=== PATIENT | female | born 1980 | race Caucasian/White ===

== ENCOUNTER 2023-03-16 11:53 | Outpatient (CLI) | payer BC | END 2023-03-16 11:54 | disposition home or self-care (01) | LOC: CSHMAMMO 11:53 | PROVIDERS: ATTEND Student in an Organized Health Care Education/Training Program | DX: Z12.31 Encounter for screening mammogram for malignant neoplasm of breast (principal) | CPT/HCPCS: 77063; 77067 ==

== ENCOUNTER 2025-11-12 08:19 | Outpatient (CLI) | payer BC | END 2025-11-12 08:20 | disposition home or self-care (01) | LOC: CSHSLEEP 08:19 | DX: G47.19 Other hypersomnia (principal); G47.33 Obstructive sleep apnea (adult) (pediatric); G47.61 Periodic limb movement disorder | CPT/HCPCS: 95810 ==

== ENCOUNTER 2025-11-13 08:22 | Outpatient (CLI) | payer BC | END 2025-11-13 08:23 | disposition home or self-care (01) | LOC: CSHSLEEP 08:22 | DX: G47.10 Hypersomnia, unspecified (principal); G47.9 Sleep disorder, unspecified | CPT/HCPCS: 95805 ==